=== PATIENT | male | born 1950 | race Caucasian/White ===

== ENCOUNTER → 2018-09-19 12:25 | Outpatient (CLI) | payer MEDICARE, OTHER, SELFPAY | DX: Z23 Encounter for immunization (principal) | CPT/HCPCS: 90471; 90662 ==

== ENCOUNTER → 2022-12-31 08:06 | Outpatient (CLI) | payer OTHER, SELFPAY ==
--- NOTE | 2022-12-31 08:08 | DI.ECHO.S_ITS ---
[facility]+ [facility] +---------+ : : [address] : : : : [id number] : : : : Phone: [phone]+ Echocardiogram Report + + :Name: SELAM SHUKLA Study Date: 12/31/2022 Height: 68 in : :[facility] ReadingLocation: Weight: 160 lb : : Gender: Male BSA: 1.9 m2 : :: 1950 Age: 72 yrs BP: 124/88 mmHg: :Reason For Study: Abnormal echocardiogram, RVH, assess RV size : :and function : :Ordering Physician: Katina : :Roxana Performed By: Brittney Szymanski : :Referring: KATINA SCHMIDT E : + + Interpretation Summary The right ventricle is normal in size and function. There is mild to moderate right ventricular hypertrophy. Procedure: A two-dimensional transthoracic echocardiogram with color flow and Doppler was performed in limited views only. The study quality was technically good. The patient was in atrial fibrillation with heart rates between 77-119 bpm during the exam. Left Ventricle: The left ventricle is normal in size. The ejection fraction is estimated to be 60-65%. Right Ventricle: The right ventricle is normal in size and function. There is mild to moderate right ventricular hypertrophy. Atria: The right atrium is moderate to severely dilated. Mitral Valve: The mitral valve is normal. Aortic Valve: The aortic valve opens well. Tricuspid Valve: The tricuspid valve is normal. There is mild to moderate tricuspid regurgitation. MMode/2D Measurements & Calculations RA long axis: 6.1 cm RVD1 (basal): 3.9 cm RA area: 27.2 cm2 RVD2 (mid): 2.5 cm RA vol: 102.9 ml RA : 55.4 ml/m2 RV Wall_phl: 0.90 cm TAPSE_phl: 2.3 cm Doppler Measurements & Calculations TR max ruma: 305.0 cm/sec TR max P.2 mmHg Reading Physician:05:23 PM
== END ==
PROVIDERS: PCP Family Medicine; Referring Provider Internal Medicine Cardiovascular Disease; Visit Provider Internal Medicine Cardiovascular Disease
DX: I07.1 Rheumatic tricuspid insufficiency (principal); R93.1 Abnormal findings on diagnostic imaging of heart and coronary circulation
CPT/HCPCS: 93307

== ENCOUNTER → 2025-01-29 13:53 | Outpatient (CLI) | payer OTHER, SELFPAY ==
[2025-01-29 14:28] LABS: Estimated Glomerular Filt Rate > 60 mL/min (>60)
== END ==
PROVIDERS: Radiology Diagnostic Radiology; Family Provider Family Medicine; PCP Family Medicine
DX: I48.91 Unspecified atrial fibrillation (principal)
CPT/HCPCS: 36415; 82565

== ENCOUNTER → 2025-02-01 10:13 | Outpatient (CLI) | payer OTHER, SELFPAY ==
--- NOTE | 2025-02-01 10:14 | DI.CT.S_ITS ---
PROCEDURE: CT ANGIO CHEST INDICATIONS: atrial fibrilliation TECHNIQUE: After the administration of intravenous contrast, 3 mm thick sections acquired from the pulmonary apices to the posterior costophrenic angles. 3-dimensional maximum intensity projection (MIP) coronal reformats were then acquired parallel to the pulmonary veins. For radiation dose reduction, the following was used: automated exposure control, adjustment of mA and/or kV according to patient size. COMPARISON: None. FINDINGS: Image quality: Excellent. Pulmonary veins: 4 pulmonary veins are identified. * Right superior pulmonary vein: 2.1 x 1.9 cm diameter, 0.6 cm from ostium to 1st order branch. * Right inferior pulmonary vein: 1.9 x 1.4 cm diameter, 0.3 cm from ostium to 1st order branch. * Left superior pulmonary vein: 1.1 x 1.3 cm diameter, 1.5 cm from ostium to 1st order branch. * Left inferior pulmonary vein: 1.3 x 1.6 cm diameter, 2.5 cm from ostium to 1st order branch. * Supernumerary pulmonary veins: none. Lungs and pleura: Lungs are clear. No pleural effusions or pneumothorax. Central and peripheral airways are patent. Mediastinum: Heart size is mildly enlarged, with biatrial enlargement, without pericardial effusion. No mediastinal or hilar adenopathy. Mild aneurysmal dilatation of the ascending aorta, measuring 4.1 cm. Esophagus is normal in caliber, without hiatal hernia. Bones and chest wall: No suspicious bony lesions. Ribs and thoracic spine appear intact throughout. No axillary or supraclavicular adenopathy. Thyroid gland is unremarkable . Abdomen: Visualized upper abdominal solid organs appear normal in the early arterial phase of enhancement. IMPRESSION: 1. Normal pulmonary venous anatomy. Sizes and measurements as described above. 2. Mild aneurysmal dilatation of the ascending aorta, measuring 4.1 cm. 3. Cardiomegaly with biatrial enlargement Dictated by: Tian Connell M.D. on 02/01/2025 at 14:41 Approved by: Tian Connell M.D. on 02/01/2025 at 14:50
== END ==
PROVIDERS: Family Provider Family Medicine; PCP Family Medicine; Referring Provider Internal Medicine Cardiovascular Disease; Visit Provider Internal Medicine Cardiovascular Disease
DX: I48.91 Unspecified atrial fibrillation (principal); I71.21 Aneurysm of the ascending aorta, without rupture; I51.7 Cardiomegaly
CPT/HCPCS: 71275; Q9967

== ENCOUNTER 2025-02-08 14:30 | Outpatient (RCR) | payer OTHER, SELFPAY ==
--- NOTE | 2025-01-23 18:12 | PT.OIE ---
Current Diagnoses Vestibular neuronitis, right ear (01/23/25) Other disorders of vestibular function, right ear (01/23/25) Dizziness and giddiness (01/23/25) Past Medical History (Last Updated 10/05/18 @ 11:12 by Dixie Law) Chicken pox (8) Hemorrhoids (1989) History of recurrent ear infection (1969) Measles (1961) Mumps (1953) Plantar warts (1977) Shoulder pain (1984) Tinnitus (2015) Past Surgical History (Last Updated 10/05/18 @ 11:12 by Dixie Law) Anesthesia History of tonsillectomy (1958) Status post knee surgery (10/2010) Visit Care Team Role Provider Type Chio Matute MD Family Provider Physician Specialty: Family Practice Address: [address] [place] [address], [id number] Email: [email or web address] Anahi Bobby DO Attending Provider Non-Staff Primary Care Provider Referring Provider Specialty: Medical Address: [address] [place] [address], [phone] Email: Physical Therapy Initial Evaluation PT-OP-A Visit Information Start: 01/23/25 17:50 Freq: Status: Active Protocol: Document 01/23/25 16:15 DCW (Rec: 01/23/25 18:12 DCW [id number]) Out-Patient Physical Therapy Visit Information Visit Information Visit Type Initial Evaluation Visit Start Time 16:15 Visit Stop Time 17:00 Visit Number 1 Number of MACHINE SETTER SHEET METAL Visits 0 Evaluation Information Evaluation Date 01/23/25 PT-OP-B Current Condition Start: 01/23/25 17:50 Freq: Status: Active Protocol: Document 01/23/25 16:15 DCW (Rec: 01/23/25 18:12 DCW [id number]) Current Condition History of Current Condition Onset Date 3-4 year history Current Complaints 45? off course to the left when starting to walk History of Current Condition Pt is a 74 year old male complaining of a 3-4 year history of unsteadiness on his feet, especially when first starting to walk. Reports problems began 3-4 years ago, he woke up with spontaneous rotational vertigo lasting two days, followed by weeks of slowly improving unsteadiness, especially when up moving around. I could have been accused of being drunk just by walking down the sidewalk. Other symptoms of unsteadiness have decreased over the past few years, but pt still has this ongoing complaint of basically lunging 45? to the left when first starting to walk, before getting everything more stable feeling . Pt denies recent hearing changes, tinnitus, diplopia, dysarthria, or decreased mentation/consciousness. Pt reports symptoms are not waxing/waning in nature. PT-OP-C Subjective Start: 01/23/25 17:50 Freq: Status: Active Protocol: Document 01/23/25 16:15 DCW (Rec: 01/23/25 18:12 DCW [id number]) OP-PT Subjective Patient Comments Patient Comments Pt notes symptoms seem to be worse when getting up in the middle of the night and trying to walk in low light. PT-OP-O Vestibular Start: 01/23/25 17:50 Freq: Status: Active Protocol: Document 01/23/25 16:15 DCW (Rec: 01/23/25 18:12 DCW [id number]) Vestibular Assessment Auditory Tests Winchester Test Lateralizes right Rinne Test Negative Air Conduction Results Equal Visual Testing Smooth Pursuits Horizontal Saccadic movements Smooth Pursuits Vertical Saccadic movements Saccades Horizontal WNL Saccades Vertical WNL Heave Test Positive Right Thrust Head Positive Right Wei String Test WNL DVA (Line Degradation) 0 Vestibular Function Tests Fukuda Test 180? turn PT-OP-Q Treatments Start: 01/23/25 17:50 Freq: Status: Active Protocol: Document 01/23/25 16:15 DCW (Rec: 01/23/25 18:12 DCW [id number]) Neuro Re-Education Treatment Vestibular Rehabilitation X1 Viewing Details Static target with head turns Distance From Target Arm's length Speed as tolerated Position Seated VOR Retraining Details Target and head moving together Distance From Target Arm's length Speed as tolerated Position Seated PT-OP-T Assessment and Plan Start: 01/23/25 17:50 Freq: Status: Active Protocol: Document 01/23/25 16:15 DCW (Rec: 01/23/25 18:12 DCW [id number]) Physical Therapy Assessment Rehab Potential Rehabilitation Potential Good Evaluation Complexity Number of Personal Factors/Comorbidities 3 or More Number of Body Systems Impaired 4 or More Clinical Presentation at Evaluation Unstable Impairments Impairments Balance,Functional Activities, Functional Mobility,Gait, Vestibular Goals Two Impairment Pt demonstrates a 180? rotation during Fukuda testing Illusionist Goal (LTG) Pt to perform a Fukuda step test with <90? of rotation in order to demonstrate improved vestibular compensation LTG Duration 03/23/25 One Impairment Pt does not have an appropriate home exercise program Short Term Goal (STG) Pt to be independent and compliant with an appropriate HEP STG Duration 02/20/25 Assessment Summary Assessment Pt presents with signs and symptoms strongly suggestive of partially compensated right -sided Vestibular Neuritis. Pt exhibits positive R thrust and heave tests, a right-sided lateralization during the Winchester test, and a significantly positive Fukuda step test, all suggestive of unilateral vestibular hypofunction. There does not appear to be any associated hearing loss. Pt will likely benefit from vestibular rehabilitation focusing on vestibular compensation and habituation exercises, VOR retraining, and oculomotor exercises. Physical Therapy Plan Frequency and Duration Frequency of Treatment 2x/Week Plan of Care Start Date 01/23/25 Plan of Care End Date 03/23/25 Therapeutic Interventions Therapeutic Interventions Balance Training,Canalithic Repositioning,Coordination Training,Home Exercise Program ,Manual Therapy,Neuromuscular Re-education,Patient/Caregiver Education,Self-Care/Home Management,Therapeutic Activities,Therapeutic Exercises,Vestibular Rehabilitation Next Visit Focus/Plan Next Note Type Treatment Note Next Visit Plan vestibular compensation and habituation exercises, VOR retraining, and oculomotor exercises.
--- NOTE | 2025-01-23 18:13 | PT.OPPOC ---
Addendum entered by Andrés Charlton 10/23/25 10:14: Faxed 2nd attempt POC to Anahi Bobby DO. Original Note: Physical, Occupational & Speech Therapy At [facility] Current Diagnoses Vestibular neuronitis, right ear (01/23/25) Other disorders of vestibular function, right ear (01/23/25) Dizziness and giddiness (01/23/25) Visit Care Team Role Provider Type Chio Matute MD Family Provider Physician Specialty: Family Practice Address: [address] [place] [address] [place], [address] Email: [email or web address] Anahi Bobby DO Attending Provider Non-Staff Primary Care Provider Referring Provider Specialty: Medical Address: [address] [place] [address], [phone] Email: Plan Of Care PT-OP-B Current Condition Start: 01/23/25 17:50 Freq: Status: Active Protocol: Document 01/23/25 16:15 DCW (Rec: 01/23/25 18:12 DCW [id number]) Current Condition History of Current Condition Onset Date 3-4 year history Current Complaints 45? off course to the left when starting to walk History of Current Condition Pt is a 74 year old male complaining of a 3-4 year history of unsteadiness on his feet, especially when first starting to walk. Reports problems began 3-4 years ago, he woke up with spontaneous rotational vertigo lasting two days, followed by weeks of slowly improving unsteadiness, especially when up moving around. I could have been accused of being drunk just by walking down the sidewalk. Other symptoms of unsteadiness have decreased over the past few years, but pt still has this ongoing complaint of basically lunging 45? to the left when first starting to walk, before getting everything more stable feeling . Pt denies recent hearing changes, tinnitus, diplopia, dysarthria, or decreased mentation/consciousness. Pt reports symptoms are not waxing/waning in nature. PT-OP-T Assessment and Plan Start: 01/23/25 17:50 Freq: Status: Active Protocol: Document 01/23/25 16:15 DCW (Rec: 01/23/25 18:12 DCW [id number]) Physical Therapy Assessment Rehab Potential Rehabilitation Potential Good Evaluation Complexity Number of Personal Factors/Comorbidities 3 or More Number of Body Systems Impaired 4 or More Clinical Presentation at Evaluation Unstable Impairments Impairments Balance,Functional Activities, Functional Mobility,Gait, Vestibular Goals Two Impairment Pt demonstrates a 180? rotation during Fukuda testing Waiter/Waitress Tourist Class Goal (LTG) Pt to perform a Fukuda step test with <90? of rotation in order to demonstrate improved vestibular compensation LTG Duration 03/23/25 One Impairment Pt does not have an appropriate home exercise program Short Term Goal (STG) Pt to be independent and compliant with an appropriate HEP STG Duration 02/20/25 Assessment Summary Assessment Pt presents with signs and symptoms strongly suggestive of partially compensated right -sided Vestibular Neuritis. Pt exhibits positive R thrust and heave tests, a right-sided lateralization during the Winchester test, and a significantly positive Fukuda step test, all suggestive of unilateral vestibular hypofunction. There does not appear to be any associated hearing loss. Pt will likely benefit from vestibular rehabilitation focusing on vestibular compensation and habituation exercises, VOR retraining, and oculomotor exercises. Physical Therapy Plan Frequency and Duration Frequency of Treatment 2x/Week Plan of Care Start Date 01/23/25 Plan of Care End Date 03/23/25 Therapeutic Interventions Therapeutic Interventions Balance Training,Canalithic Repositioning,Coordination Training,Home Exercise Program ,Manual Therapy,Neuromuscular Re-education,Patient/Caregiver Education,Self-Care/Home Management,Therapeutic Activities,Therapeutic Exercises,Vestibular Rehabilitation Next Visit Focus/Plan Next Note Type Treatment Note Next Visit Plan vestibular compensation and habituation exercises, VOR retraining, and oculomotor exercises. Plan of Care Dates Plan of Care Start Date 01/23/25 Plan of Care End Date 03/23/25 Electronically Signed by: Sean Unger, PT 01/23/25 0006 If you are in agreement with this Plan of Care, please return a signed and dated copy. I have reviewed this Plan of Care and certify that the skilled therapy services above are required to meet the patient?s needs. Physician Signature Date Printed Name and Credentials Clinical Instructor Signature Printed Name and Credentials
--- NOTE | 2025-01-31 16:05 | PT.OTN ---
Current Diagnoses Vestibular neuronitis, right ear (01/31/25) Other disorders of vestibular function, right ear (01/31/25) Dizziness and giddiness (01/31/25) Physical Therapy Treatment Note PT-OP-A Visit Information Start: 01/23/25 17:50 Freq: Status: Active Protocol: Document 01/31/25 15:20 DCW (Rec: 01/31/25 16:05 DCW [id number]) Out-Patient Physical Therapy Visit Information Visit Information Visit Type Treatment Note Visit Start Time 15:20 Visit Stop Time 16:00 Visit Number 2 Number of CHIEF DESIGN BRANCH Visits 0 Evaluation Information Evaluation Date 01/23/25 PT-OP-B Current Condition Start: 01/23/25 17:50 Freq: Status: Active Protocol: Document 01/23/25 16:15 DCW (Rec: 01/23/25 18:12 DCW [id number]) Current Condition History of Current Condition Onset Date 3-4 year history Current Complaints 45? off course to the left when starting to walk History of Current Condition Pt is a 74 year old male complaining of a 3-4 year history of unsteadiness on his feet, especially when first starting to walk. Reports problems began 3-4 years ago, he woke up with spontaneous rotational vertigo lasting two days, followed by weeks of slowly improving unsteadiness, especially when up moving around. I could have been accused of being drunk just by walking down the sidewalk. Other symptoms of unsteadiness have decreased over the past few years, but pt still has this ongoing complaint of basically lunging 45? to the left when first starting to walk, before getting everything more stable feeling . Pt denies recent hearing changes, tinnitus, diplopia, dysarthria, or decreased mentation/consciousness. Pt reports symptoms are not waxing/waning in nature. PT-OP-C Subjective Start: 01/23/25 17:50 Freq: Status: Active Protocol: Document 01/31/25 15:20 DCW (Rec: 01/31/25 16:05 DCW [id number]) OP-PT Subjective Patient Comments Patient Comments Primary symptoms is loss of balance, at least temporary. I haven't noticed much of a change. PT-OP-O Vestibular Start: 01/23/25 17:50 Freq: Status: Active Protocol: Document 01/23/25 16:15 DCW (Rec: 01/23/25 18:12 DCW [id number]) Vestibular Assessment Auditory Tests Winchester Test Lateralizes right Rinne Test Negative Air Conduction Results Equal Visual Testing Smooth Pursuits Horizontal Saccadic movements Smooth Pursuits Vertical Saccadic movements Saccades Horizontal WNL Saccades Vertical WNL Heave Test Positive Right Thrust Head Positive Right Wei String Test WNL DVA (Line Degradation) 0 Vestibular Function Tests Fukuda Test 180? turn PT-OP-Q Treatments Start: 01/23/25 17:50 Freq: Status: Active Protocol: Document 01/31/25 15:20 DCW (Rec: 01/31/25 16:05 DCW [id number]) Gym Equipment Shuttle Balance Red Details WBOS, Staggered, Lateral weight shift Neuro Re-Education Treatment Balance Activities Visual Conflict Details Visual conflict board Foam Details Foam stance Comments NBOS (EO/EC), X1 Vestibular Rehabilitation Corrective Saccades Details Eyes, then head between 2 targets Distance From Target Arm's length Speed as tolerated Position Seated X2 Viewing Details Target and head moving in opposite directions Distance From Target Arm's length Speed as tolerated Position Seated X1 Viewing Details Static target with head turns Distance From Target Arm's length Speed as tolerated Position Seated VOR Retraining Details Target and head moving together Distance From Target Arm's length Speed as tolerated Position Seated PT-OP-T Assessment and Plan Start: 01/23/25 17:50 Freq: Status: Active Protocol: Document 01/31/25 15:20 DCW (Rec: 01/31/25 16:05 DCW [id number]) Physical Therapy Assessment Impairments Impairments Balance,Functional Activities, Functional Mobility,Gait, Vestibular Goals Two Impairment Pt demonstrates a 180? rotation during Fukuda testing Skilled Nursing Goal (LTG) Pt to perform a Fukuda step test with <90? of rotation in order to demonstrate improved vestibular compensation LTG Duration 03/23/25 One Impairment Pt does not have an appropriate home exercise program Short Term Goal (STG) Pt to be independent and compliant with an appropriate HEP STG Duration 02/20/25 Assessment Summary Assessment Good response to treatment today, pt felt HEP is going pretty well, occasionally makes him mildly symptomatic. Continue with vestibular rehabilitation exercises. Physical Therapy Plan Frequency and Duration Frequency of Treatment 2x/Week Plan of Care Start Date 01/23/25 Plan of Care End Date 03/23/25 Therapeutic Interventions Therapeutic Interventions Balance Training,Canalithic Repositioning,Coordination Training,Home Exercise Program ,Manual Therapy,Neuromuscular Re-education,Patient/Caregiver Education,Self-Care/Home Management,Therapeutic Activities,Therapeutic Exercises,Vestibular Rehabilitation Next Visit Focus/Plan Next Note Type Treatment Note Next Visit Plan vestibular compensation and habituation exercises, VOR retraining, and oculomotor exercises.
--- NOTE | 2025-02-05 16:07 | PT.OTN ---
Current Diagnoses Vestibular neuronitis, right ear (02/05/25) Other disorders of vestibular function, right ear (02/05/25) Dizziness and giddiness (02/05/25) Physical Therapy Treatment Note PT-OP-A Visit Information Start: 01/23/25 17:50 Freq: Status: Active Protocol: Document 02/05/25 15:20 DCW (Rec: 02/05/25 16:07 DCW [id number]) Out-Patient Physical Therapy Visit Information Visit Information Visit Type Treatment Note Visit Start Time 15:20 Visit Stop Time 16:00 Visit Number 3 Number of SCHOOL SUPERINTENDENT Visits 0 Evaluation Information Evaluation Date 01/23/25 PT-OP-B Current Condition Start: 01/23/25 17:50 Freq: Status: Active Protocol: Document 01/23/25 16:15 DCW (Rec: 01/23/25 18:12 DCW [id number]) Current Condition History of Current Condition Onset Date 3-4 year history Current Complaints 45? off course to the left when starting to walk History of Current Condition Pt is a 74 year old male complaining of a 3-4 year history of unsteadiness on his feet, especially when first starting to walk. Reports problems began 3-4 years ago, he woke up with spontaneous rotational vertigo lasting two days, followed by weeks of slowly improving unsteadiness, especially when up moving around. I could have been accused of being drunk just by walking down the sidewalk. Other symptoms of unsteadiness have decreased over the past few years, but pt still has this ongoing complaint of basically lunging 45? to the left when first starting to walk, before getting everything more stable feeling . Pt denies recent hearing changes, tinnitus, diplopia, dysarthria, or decreased mentation/consciousness. Pt reports symptoms are not waxing/waning in nature. PT-OP-C Subjective Start: 01/23/25 17:50 Freq: Status: Active Protocol: Document 02/05/25 15:20 DCW (Rec: 02/05/25 16:07 DCW [id number]) OP-PT Subjective Patient Comments Patient Comments The therapy might be making me feel a little less steady than before I started. Particularly noticeable if I make a quick turn. PT-OP-O Vestibular Start: 01/23/25 17:50 Freq: Status: Active Protocol: Document 01/23/25 16:15 DCW (Rec: 01/23/25 18:12 DCW [id number]) Vestibular Assessment Auditory Tests Winchester Test Lateralizes right Rinne Test Negative Air Conduction Results Equal Visual Testing Smooth Pursuits Horizontal Saccadic movements Smooth Pursuits Vertical Saccadic movements Saccades Horizontal WNL Saccades Vertical WNL Heave Test Positive Right Thrust Head Positive Right Wei String Test WNL DVA (Line Degradation) 0 Vestibular Function Tests Fukuda Test 180? turn PT-OP-Q Treatments Start: 01/23/25 17:50 Freq: Status: Active Protocol: Document 02/05/25 15:20 DCW (Rec: 02/05/25 16:07 DCW [id number]) Gym Equipment Shuttle Balance Red Details WBOS (EO/EC, Head turns), Staggered Neuro Re-Education Treatment Balance Activities Disco ball Details Disco Ball - NBOS /c foam, Tandem /s foam Hurdles Details Hurdles/Foam Comments Forward, Tandem, Side-stepping Vestibular Rehabilitation Corrective Saccades Details Eyes, then head between 2 targets Distance From Target Arm's length Speed as tolerated Position Seated X1 Viewing Details Static target with head turns Speed as tolerated Position AirEx stance Comments Horizontal, Vertical, Circles PT-OP-T Assessment and Plan Start: 01/23/25 17:50 Freq: Status: Active Protocol: Document 02/05/25 15:20 DCW (Rec: 02/05/25 16:07 DCW [id number]) Physical Therapy Assessment Impairments Impairments Balance,Functional Activities, Functional Mobility,Gait, Vestibular Goals Two Impairment Pt demonstrates a 180? rotation during Fukuda testing Recycling Or Rubbish Collector Goal (LTG) Pt to perform a Fukuda step test with <90? of rotation in order to demonstrate improved vestibular compensation LTG Duration 03/23/25 One Impairment Pt does not have an appropriate home exercise program Short Term Goal (STG) Pt to be independent and compliant with an appropriate HEP STG Duration 02/20/25 Assessment Summary Assessment Pt tolerated treatment well, Disco ball was fairly difficult, but only with narrow KHLOE and/or foam stance. Continue to focus on vestibular rehab and adaptation/habituation exercises. Physical Therapy Plan Frequency and Duration Frequency of Treatment 2x/Week Plan of Care Start Date 01/23/25 Plan of Care End Date 03/23/25 Therapeutic Interventions Therapeutic Interventions Balance Training,Canalithic Repositioning,Coordination Training,Home Exercise Program ,Manual Therapy,Neuromuscular Re-education,Patient/Caregiver Education,Self-Care/Home Management,Therapeutic Activities,Therapeutic Exercises,Vestibular Rehabilitation Next Visit Focus/Plan Next Note Type Treatment Note Next Visit Plan vestibular compensation and habituation exercises, VOR retraining, and oculomotor exercises.
--- NOTE | 2025-02-08 15:24 | PT.OTN ---
Current Diagnoses Vestibular neuronitis, right ear (02/08/25) Other disorders of vestibular function, right ear (02/08/25) Dizziness and giddiness (02/08/25) Physical Therapy Treatment Note PT-OP-A Visit Information Start: 01/23/25 17:50 Freq: Status: Active Protocol: Document 02/08/25 14:35 DCW (Rec: 02/08/25 15:24 DCW [id number]) Out-Patient Physical Therapy Visit Information Visit Information Visit Type Treatment Note Visit Start Time 14:35 Visit Stop Time 15:20 Visit Number 4 Number of [employer] Visits 0 Evaluation Information Evaluation Date 01/23/25 Precautions Precautions BP measured pre-tx, 176/92 PT-OP-B Current Condition Start: 01/23/25 17:50 Freq: Status: Active Protocol: Document 01/23/25 16:15 DCW (Rec: 01/23/25 18:12 DCW [id number]) Current Condition History of Current Condition Onset Date 3-4 year history Current Complaints 45? off course to the left when starting to walk History of Current Condition Pt is a 74 year old male complaining of a 3-4 year history of unsteadiness on his feet, especially when first starting to walk. Reports problems began 3-4 years ago, he woke up with spontaneous rotational vertigo lasting two days, followed by weeks of slowly improving unsteadiness, especially when up moving around. I could have been accused of being drunk just by walking down the sidewalk. Other symptoms of unsteadiness have decreased over the past few years, but pt still has this ongoing complaint of basically lunging 45? to the left when first starting to walk, before getting everything more stable feeling . Pt denies recent hearing changes, tinnitus, diplopia, dysarthria, or decreased mentation/consciousness. Pt reports symptoms are not waxing/waning in nature. PT-OP-C Subjective Start: 01/23/25 17:50 Freq: Status: Active Protocol: Document 02/08/25 14:35 DCW (Rec: 02/08/25 15:24 DCW [id number]) OP-PT Subjective Patient Comments Patient Comments About the same. If I move too fast, I get a flash of dizzy. I don't think the frequency of the dizziness has changed, but when it happens, it might be a little bit more severe than it was a month ago. PT-OP-O Vestibular Start: 01/23/25 17:50 Freq: Status: Active Protocol: Document 01/23/25 16:15 DCW (Rec: 01/23/25 18:12 DCW [id number]) Vestibular Assessment Auditory Tests [place] Test Lateralizes right Rinne Test Negative Air Conduction Results Equal Visual Testing Smooth Pursuits Horizontal Saccadic movements Smooth Pursuits Vertical Saccadic movements Saccades Horizontal WNL Saccades Vertical WNL Heave Test Positive Right Thrust Head Positive Right Wei String Test WNL DVA (Line Degradation) 0 Vestibular Function Tests Fukuda Test 180? turn PT-OP-Q Treatments Start: 01/23/25 17:50 Freq: Status: Active Protocol: Document 02/08/25 14:35 DCW (Rec: 02/08/25 15:24 DCW [id number]) Gym Equipment Shuttle Balance Red Details WBOS (EO/EC, Head turns), Staggered Neuro Re-Education Treatment Balance Activities SLS Details SLS Equipment AirEx Dynamic Gait Details Hallway Ambulation Comments Head turns (80 bpm) Tandem Gait Foam Details Foam stance Equipment AirEx Comments Stride Stance X1 PT-OP-T Assessment and Plan Start: 01/23/25 17:50 Freq: Status: Active Protocol: Document 02/08/25 14:35 DCW (Rec: 02/08/25 15:24 DCW [id number]) Physical Therapy Assessment Impairments Impairments Balance,Functional Activities, Functional Mobility,Gait, Vestibular Goals Two Impairment Pt demonstrates a 180? rotation during Fukuda testing Detention Goal (LTG) Pt to perform a Fukuda step test with <90? of rotation in order to demonstrate improved vestibular compensation LTG Duration 03/23/25 One Impairment Pt does not have an appropriate home exercise program Short Term Goal (STG) Pt to be independent and compliant with an appropriate HEP STG Duration 02/20/25 Assessment Summary Assessment Pt doing well with vestibular challenges, however continues to experience some difficulty with dizziness in day-to-day life, specifically turning left, although unable to replicate during today's session. Physical Therapy Plan Frequency and Duration Frequency of Treatment 2x/Week Plan of Care Start Date 01/23/25 Plan of Care End Date 03/23/25 Therapeutic Interventions Therapeutic Interventions Balance Training,Canalithic Repositioning,Coordination Training,Home Exercise Program ,Manual Therapy,Neuromuscular Re-education,Patient/Caregiver Education,Self-Care/Home Management,Therapeutic Activities,Therapeutic Exercises,Vestibular Rehabilitation Next Visit Focus/Plan Next Note Type Treatment Note Next Visit Plan vestibular compensation and habituation exercises, VOR retraining, and oculomotor exercises.
--- NOTE | 2025-09-17 16:23 | PT.OPDS ---
Current Diagnoses Vestibular neuronitis, right ear (02/08/25) Other disorders of vestibular function, right ear (02/08/25) Dizziness and giddiness (02/08/25) Visit Care Team Role Provider Type Chio Matute MD Family Provider Physician Specialty: Family Practice Address: [address] [place] [address], [place], [address] Email: [email or web address] Bobby DO Attending Provider Non-Staff Primary Care Provider Referring Provider Specialty: Medical Address: [address] [place] [address], [id number] Email: Visit Number Visit Number 4 Discharge Summary PT-OP-T Assessment and Plan Start: 01/23/25 17:50 Freq: Status: Active Protocol: Document 09/17/25 16:22 DCW (Rec: 09/17/25 16:23 DCW [id number]) Physical Therapy Assessment Assessment Summary Assessment Pt has currently not been seen in more than seven months, will be discharged from skilled therapy at this time. Physical Therapy Plan Discharge Physical Therapy Discharge Reasons No Longer Attending PT
== END 2025-09-18 09:49 | disposition home or self-care (01) ==
LOC: PHYS 14:30
PROVIDERS: Family Provider Family Medicine; PCP Family Medicine; Referring Provider Family Medicine; Visit Provider Family Medicine
DX: H81.8X1 Other disorders of vestibular function, right ear (principal); H81.21 Vestibular neuronitis, right ear
CPT/HCPCS: 97112; 97163

== ENCOUNTER → 2025-09-12 09:18 | Outpatient (CLI) | payer OTHER, SELFPAY ==
--- NOTE | 2025-09-12 09:20 | DI.ECHO.S_ITS ---
[facility] : : [id number] : : [place] : : [id number] : : Phone: [phone] Echocardiogram Report + + :Name: SELAM SHUKLA Study Date: 09/12/2025 Height: 69 in : :[facility] ReadingLocation: Weight: 150 lb : : Gender: Male BSA: 1.8 m2 : :: 1950 Age: 74 yrs BP: 183/95 mmHg: :Reason For Study: AFIB : :Ordering Physician: EKTA, : :KATINA Gleason Performed By: Kian Chang : :Referring: KATINA DASH : + + Interpretation Summary The ejection fraction is estimated to be 60-65%. Diastolic function is indeterminate. The left atrium is moderately dilated. The right ventricle is mildly dilated. There is mild to moderate right ventricular hypertrophy. The right ventricular systolic function is normal. The right atrium is severely dilated. Doppler interrogation and injection of saline echo contrast shows no evidence for an interatrial shunt. There is mild to moderate mitral regurgitation. There is mild aortic regurgitation. There is moderate tricuspid regurgitation. The right ventricular systolic pressure is estimated to be at least 52 mmHg based on an estimated right atrial pressure of 8 mm Hg. The ascending aorta is mildly enlarged. Compared to the prior study 12/31/2022, the right ventricle now appears mildly dilated. Procedure: A two-dimensional transthoracic echocardiogram with color flow and Doppler was performed. The study quality was technically adequate. Comparison is made with the echocardiogram of 12/31/2022. A saline contrast injection was performed to assess for cardiac shunting. The heart rate ranged between 59-77 bpm during the study. The patient had frequent PACs during the exam. Left Ventricle: The left ventricle is normal in size. Left ventricular wall thickness is borderline increased. Left ventricular systolic function is normal. The ejection fraction is estimated to be 60-65%. There are no focal wall motion abnormalities. Diastolic function is indeterminate. Right Ventricle: The right ventricle is mildly dilated. There is mild to moderate right ventricular hypertrophy. The right ventricular systolic function is normal. Atria: The left atrium is moderately dilated. The right atrium is severely dilated. Bubble study was captured on image frame(s) # [id number]. Doppler interrogation and injection of saline echo contrast shows no evidence for an interatrial shunt. Bubble study performed per protocol, no bubbles where noted in the left atrium or left ventricle. Mitral Valve: The mitral valve leaflets appear to open well. There is no mitral valve stenosis. There is mild to moderate mitral regurgitation. The mitral regurgitant jet is eccentrically directed. Aortic Valve: The aortic valve is trileaflet. There is mild aortic valve sclerosis. There is no hemodynamically significant valvular aortic stenosis. There is mild aortic regurgitation. Tricuspid Valve: The tricuspid valve is not well visualized, but is grossly normal. There is moderate tricuspid regurgitation. The right ventricular systolic pressure is estimated to be at least 52 mmHg based on an estimated right atrial pressure of 8 mm Hg. Pulmonic Valve: The pulmonic valve is not well seen, but is grossly normal. There is mild pulmonic regurgitation. Great Vessels: The aortic root is normal size. Enlarged ascending aorta based on BSA with a max diameter of 4.2 cm. The ascending aorta is mildly enlarged. The pulmonary is not well visualized. The IVC is dilated (diameter is greater than 2.1 cm) yet it collapses greater than 50% with a sniff. This suggests a right atrial pressure of 8 mm Hg. Pericardium/ Pleura There is no pericardial effusion. MMode/2D Measurements & Calculations LVIDd: 4.7 cm LVOT diam: 2.1 cm LVIDs: 2.9 cm Ao root diam: 3.5 cm FS: 37.5 % asc Aorta Diam: 4.2 cm IVSd: 1.1 cm LVPWd: 1.1 cm LV joseph. diameter/BSA (cm/m^2): 2.6 LV sys. diameter/BSA (cm/m^2): 1.6 LA A2 area: 26.2 cm2 RA long axis: 6.4 cm LA A4 area: 24.5 cm2 RA area: 29.4 cm2 LA length (vol): 6.3 cm RA vol: 114.5 ml LA vol: 87.3 ml RA : 62.7 ml/m2 LA vol index: 47.8 ml/m2 IVC diam: 2.6 cm RVD1 (basal): 4.7 cm RVD2 (mid): 3.4 cm TAPSE: 3.1 cm Doppler Measurements & Calculations Ao V2 max: 131.0 cm/sec LVOT Max Jorje: 94.3 cm/sec Ao V2 mean: 95.0 cm/sec LV V1 max P.6 mmHg Ao max P.9 mmHg LV V1 VTI: 21.0 cm Ao mean P.0 mmHg JAMIE(I,D): 2.5 cm2 Ao V2 VTI: 28.8 cm JAMIE(V,D): 2.5 cm2 sev ratio: 0.73 JAMIE indexed to BSA (cm^2/m^2): 1.4 AI P1/2t: 624.5 msec AI dec slope: 231.2 cm/sec2 MV E max jorje: 80.5 cm/sec TR max jorje: 333.1 cm/sec MV A max jorje: 37.6 cm/sec TR max P.4 mmHg MV E/A: 2.1 Med Peak E' Jorje: 7.2 cm/sec E/E' med: 11.3 Lat Peak E' Jorje: 11.0 cm/sec E/E' lat: 7.3 E/e' average: 9.3 MV dec time: 0.22 sec SV(LVOT): 72.2 ml Reading Physician:12:16 PM
== END ==
PROVIDERS: Family Provider Family Medicine; PCP Family Medicine; Referring Provider Internal Medicine Cardiovascular Disease; Visit Provider Internal Medicine Cardiovascular Disease
DX: I48.0 Paroxysmal atrial fibrillation (principal); I08.3 Combined rheumatic disorders of mitral, aortic and tricuspid valves; I49.1 Atrial premature depolarization; I77.89 Other specified disorders of arteries and arterioles
CPT/HCPCS: 93306